=== PATIENT | female | born 1985 | race Caucasian/White ===

== ENCOUNTER 2018-03-05 21:38 | Emergency (ER) | payer OTHER ==
[2018-03-05] MEDS ORDERED: Albuterol-Ipratrop 3 mg / 0.5 (3 ml) UD ONE (21:47)
[2018-03-05 21:51] VITALS: BP 145/86; PULSE 86; RESP 22; TEMP 98; O2SAT 98
[2018-03-05] MEDS ORDERED: Albuterol 0.083% Inhal Sol (2.5 mg/3 mL) UD IH STA (21:56)
--- NOTE | 2018-03-05 21:57 | C.PDOC ---
History Of Present Illness 32 yo female w/PMHx of asthma come in for evaluation of sudden onset of nasal congestion associated with SOB, wheezing [employer] " while eating dinner at my friends house". Pt denies recent illness, fever, chills, headache, dizziness, drooling, throat swelling or tightness, CP, abd. pain, V/D, syncope, denies previous hx of allergy to food or medication. Pt reports, Albuterol neb tx given in triage with moderate improvement in SOB. Ambulate to Ed for evaluation , appears comfortable, not in resp. distress. Time Seen by Provider: 03/05/18 21:55 Chief Complaint (Nursing): Shortness Of Breath History Per: Patient Onset/Duration Of Symptoms: Sudden Onset Past Medical History Reviewed: Historical Data, Nursing Documentation, Vital Signs Vital Signs: Last Vital Signs Temp 98.0 F 03/05/18 21:47 Pulse 86 03/05/18 21:47 Resp 22 03/05/18 21:47 BP 145/86 03/05/18 21:47 Pulse Ox 98 03/05/18 22:21 - Medical History PMH: Asthma Family History: States: No Known Family Hx - Social History Hx Tobacco Use: No Hx Alcohol Use: No Hx Substance Use: No - Immunization History Hx Tetanus Toxoid Vaccination: No Hx Pneumococcal Vaccination: No Review Of Systems Except As Marked, All Systems Reviewed And Found Negative. Constitutional: Negative for: Fever, Chills Eyes: Negative for: Vision Change ENT: Positive for: Nose Discharge, Nose Congestion. Negative for: Ear Pain, Ear Discharge, Mouth Swelling, Throat Pain, Throat Swelling Cardiovascular: Negative for: Chest Pain Respiratory: Positive for: Cough, Shortness of Breath, Wheezing Gastrointestinal: Negative for: Nausea, Vomiting, Abdominal Pain, Diarrhea Neurological: Negative for: Altered Mental Status, Headache, Dizziness Physical Exam - Physical Exam Appears: Well, Non-toxic, No Acute Distress Skin: Normal Color, Warm, Dry, No Rash Head: Normacephalic Eye(s): bilateral: PERRL Ear(s): Bilateral: Normal Nose: No Flaring, Discharge (B/L nasal congestion) Oral Mucosa: Moist, No Drooling Tongue: No Swelling Lips: No Swelling Throat: No Erythema, No Drooling, Other (uvul amidline, no edema.) Neck: Supple Cardiovascular: Rhythm Regular, No Murmur Respiratory: No Decreased Breath Sounds, No Accessory Muscle Use, No Stridor, No Wheezing Gastrointestinal/Abdominal: Soft, No Tenderness, No Distention, No Guarding Extremity: Normal ROM, No Deformity, No Swelling Neurological/Psych: Oriented x3, Normal Speech ED Course And Treatment O2 Sat by Pulse Oximetry: 98 Pulse Ox Interpretation: Normal Progress Note: On re-evaluation, pt is afebrile, hemodynamicaly stable. Non- toxic. Pt reports, moderate improvement in sx after ED treatment. PulsEOx 98% RA. neck: Supple, (-) JVD, (-) carotid bruits B/L. ENT: no acute findings. Uvula midline, no edema. Lungs: CTA B/L, BS equal B/L. Neurologicaly intact. Pt has clinical findings c/w asthma exacerbation likely sec to food. Pt advised. ref. to f/u with PMD, ship scraper in 2-3 days for re-evaluation. return to ED if any worsening or new changes. Disposition Counseled Patient/Family Regarding: Diagnosis, Need For Followup, Rx Given - Disposition Referrals: [facility] [Outside] Disposition: HOME/ ROUTINE Disposition Time: 22:46 Condition: STABLE Additional Instructions: Encourage fluids Take medication as prescribed Follow up with PMD, Trimming Inspector in 2-3 days for re-evaluation. return to ED if any worsening or new changes. Prescriptions: DiphenhydrAMINE [Benadryl] 25 mg PO BID #10 cap Famotidine [Pepcid] 20 mg PO BID #10 tab Prednisone [Deltasone] 20 mg PO DAILY #3 tablet Instructions: Asthma in Adults, Food Allergy Forms: [facility] ([place]) - Clinical Impression Clinical Impression: Asthma, Food allergy
== END 2018-03-05 23:03 | disposition home or self-care (01) ==
LOC: C.ER 21:38
DX: J45.901 Unspecified asthma with (acute) exacerbation (principal); L27.2 Dermatitis due to ingested food